=== PATIENT | female | born 1990 | race Caucasian/White ===

== ENCOUNTER 2024-09-29 12:21 | Outpatient (OUT) | payer OTHER, SELFPAY ==
--- NOTE | 2024-09-29 12:34 | XR_ITS ---
The [address] [address] Patient Name: CHIDI LINARES MRN: [id number] date: 1990 Sex: F Assigned Patient Location: [facility] Current Patient Location: Accession/Order Number: [id number] Exam Date: 09/29/2024 12:42 Report Date: 09/30/2024 14:04 At the request of: VICKI DALEY Procedure: XR chest 2V EXAM: Chest x-ray HISTORY: . Cough, Wheezing, Shortness Of Breath . COMPARISON: None. TECHNIQUE: Frontal and lateral chest FINDINGS: Heart and vascularity are unremarkable. Lungs are free of focal infiltrates. No acute bony abnormality is appreciated. There is a slight scoliotic deformity of the thoracolumbar spine with convexity to the right. XR/XR chest 2V IMPRESSION: No acute heart or lung disease identified. Electronically authenticated by: RHONDA TSAI Date: 09/30/2024 14:04
== END 2024-09-29 12:22 | disposition home or self-care (01) ==
PROVIDERS: PCP Nurse Practitioner; Visit Provider Nurse Practitioner
DX: R05.9 Cough, unspecified (principal); R06.2 Wheezing; R06.02 Shortness of breath
CPT/HCPCS: 71046